=== PATIENT | female | born 1990 | race Hispanic/Latino ===

== ENCOUNTER 2016-08-17 22:27 | Emergency (ER) | payer OTHER ==
--- NOTE | 2016-08-18 00:38 | EDDOCDS ---
Nurse's Notes [facility] Name: Maryann Quiroz Age: 26 yrs Sex: Female : 1990 Arrival Date: 08/17/2016 Time: 22:27 Bed 7 Private MD: BONNIE BAILON Diagnosis: Irregular menstruation, unspecified Presentation: 08/17 22:31 Presenting complaint: states: Has not had a menstrual period since early may. Had several negative test ith two faint positive tests in the past few days. Had some light spotting earlier and now has light bleeding. Risk factors: The patient reports no loss of conciousness prior to arrival. This patient has not had a hysterectomy. This patient has not begun menopause. Adult Sepsis Screening: The patient does not have new or worsening altered mentation. Patient's respiratory rate is less than 22. Systolic blood pressure is greater than 100. Patient has a qSOFA score of 0- Negative Sepsis Screen. Suicide/Homicide risk assessment- the patient denies having any suicidal and/or homicidal ideations and does not present with any other emotional, behavioral or mental health complaints. Status: Patient is not a food service team member or dependent. Transition of care: patient was not received from another setting of care. 22:31 Acuity: BELTRAN Level 3 jo3 22:31 Method Of Arrival: Walkin/Carried/Asstd jo3 Triage Assessment: 22:35 General: Appears in no apparent distress, Behavior is appropriate for age, cooperative. jo3 Pain: Location: low abdomen. Pain: Pain currently is 4 out of 10 on a pain scale. HIV screening NA for this visit Offered previously. Neurological: Level of Consciousness is awake, alert, Oriented to person, place, time. Respiratory: Airway is patent Respiratory effort is even, unlabored. Derm: Skin is pink, warm & dry. 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 Vitamin Oral tab 1 tab once daily - PMHx: none; - PSHx: Breast Reduction; c section x2; - Social history: No barriers to communication noted, The patient speaks fluent Vietnamese, Speaks appropriately for age, Smoking status: Patient states was never smoker of tobacco. - Family history: No immediate family members are acutely ill. - : The pt / caregiver states he / she is not on anticoagulants. Home medication list is obtained from the patient. - Exposure Risk Screening:: None identified. Screenin/14 00:36 Screening information is obtained from the patient. Fall risk: No risks identified. nn1 Assistance ADL's: requires no assistance with activities of daily living. Abuse/DV Screen: The patient / caregiver reports he/she is: not in a situation that causes fear, pain or injury. Nutritional screening: No deficits noted. Advance Directives: Currently, there is no health care proxy. home support is adequate. Assessment: 08/17 22:48 General: Appears in no apparent distress, comfortable, Behavior is appropriate for age, nn1 cooperative. General: Patient reports breast tenderness and morning sickness x 3 months. . Pain: Location: pelvis Pain currently is 4 out of 10 on a pain scale. Quality of pain is described as pressure. Neurological: Level of Consciousness is awake, alert, obeys commands, Oriented to person, place, time. Respiratory: Airway is patent Respiratory effort is even, unlabored, Respiratory pattern is regular, symmetrical. GI: Abdomen is obese, Stools are reported to be loose, Bowel sounds present X 4 quads. Abd is soft and non tender X 4 quads. Reports nausea, vomiting. : Reports vaginal bleeding that is with clots spotty Patient reports small clots today. Has been spotting x 2 days. Patient is sexually active Method of control is patient stopped taking control in April, patient and partner attempting to conceive child at this time. Derm: Skin is normal. 23:56 Reassessment: Patient appears in no apparent distress at this time. nn1 08/18 00:29 General: Family and patient aware of disposition at this time, awaiting discharge nn1 instructions. . 00:36 General: Appears in no apparent distress, comfortable, Behavior is appropriate for age, nn1 cooperative. Pain: Denies pain. Neurological: Level of Consciousness is awake, alert, obeys commands. Respiratory: Airway is patent Respiratory effort is even, unlabored, Respiratory pattern is regular, symmetrical. Derm: Skin is. Vital Signs: 08/17 22:29 BP 139 / 78; Pulse 86; Resp 18; Temp 97.7(O); Pulse Ox 100% on R/A; Weight 89.81 kg dd6 (R); Height 5 ft. 4 in. (162.56 cm) (R); 22:29 Body Mass Index 33.99 (89.81 kg, 162.56 cm) dd6 Vitals: 22:29 Log In Time: August 17, 2016 at 22:27. dd6 ED Course: 22:28 Patient visited by Kartik Plascencia PCA. dd6 22:28 Patient moved to Waiting dd6 22:29 BONNIE BAILON is Private Physician. dd6 22:30 Patient moved to Pre RCE dd6 22:34 Triage Initiated jo3 22:37 Patient visited by Dawna Danielle,ALVARADO. jo3 22:39 Raquel Moore,ALVARADO is Primary Nurse. jmb 22:39 Patient moved to 7 jmb 22:42 Joel Grayson DO is Attending Physician. cs11 22:42 Patient visited by Joel Grayson DO. cs11 22:45 [facility] le 22:59 Patient visited by Annabelle Grayson PCA. ls3 22:59 Wet Prep Sent. ls3 22:59 GC & Chlamydia Amplification Sent. ls3 22:59 Assist provider with pelvic exam:. ls3 23:18 Labs drawn. (by ED staff). Sent per order to lab. kas2 23:19 Hcg, Serum Quantitative Sent. kas2 23:19 Rh Only Sent. kas2 23:25 Patient name changed from Maryann\S\\S\Quiroz\S\ to Maryann\S\Ethel\S\Quiroz. EDMS 23:29 [place] [place] Payment Agreement was scanned into [employer] and attached to record. pm4 23:56 Patient visited by Fred Muniz RN. nn1 08/18 00:29 Patient visited by Fred Muniz RN. nn1 00:30 BONNIE BAILON is Referral Physician. le 00:37 The patient / caregiver is instructed regarding the plan of care and ED course. nn1 00:37 No IV's were initiated during this patient's visit. nn1 Order Results: Lab Order: Hcg, Serum Quantitative; SPEC'M 08/17/16 23:17 Test: HCG, SERUM QUANTITATIVE; Value: < 1.0; Units: MIU/ML; Status: F Test Note: ; GESTATIONAL AGE APPROXIMATE HCG RANGE (MIU/ML) 0.2-1 WEEK 5-50 1-2 WEEKS 50-500 2-3 WEEKS 100-5,000 3-4 WEEKS 500-10,000 4-5 WEEKS 1,000-50,000 5-6 WEEKS 10,000-100,000 6-8 WEEKS 15,000-200,000 2-3 MONTHS 10,000-100,000 NON FEMALES LESS THAN 3.0 Patient samples may contain human heterophilic antibodies that could react with immunoassays to give falsely elevated or depressed results. This assay has been designed to minimize interference from heterophilic antibodies. Elevated hCG levels have also been associated with trophoblastic disease and nontrophoblastic neoplasms. The possibility of having these diseases should be considered before a diagnosis of is made. This test is not intended for use as a surrogate marker for aiding in the diagnosis or monitoring the treatment of cancer patients. Siemens MemberConnection methodology. Lab Order: Rh Only; SPEC'M 08/17/16 23:17 Test: RH; Value: POSITIVE; Status: F Lab Order: Wet Prep; SPEC'M 08/17/16 22:57 Test: WET PREP; Value: WET PREP RESULT; Status: F Test: WET PREP; Value: MODERATE EPITHELIAL CELLS PRESENT; Status: F Test: WET PREP; Value: MODERATE LONG RODS PRESENT; Status: F Outcome: 00:30 Discharge ordered by Provider. le 00:37 Discharge Assessment: Patient awake, alert and oriented x 3. No cognitive and/or nn1 functional deficits noted. Patient verbalized understanding of disposition instructions. patient administered narcotics - no. The following High Risk Discharge criteria are identified: None. Discharged to home ambulatory, with family. Condition: good Condition: improved. No special radiology studies were completed. Property :Personal belongings accompany Pt. 00:37 Patient left the ED. nn1 Signatures: Dispatcher [employer] EDUT Dawna Danielle RN RN Sandra Cao, SENIOR DATA ARCHITECT SENIOR DATA ARCHITECT Kartik Reilly, COUNSELOR MARRIAGE AND FAMILY COUNSELOR MARRIAGE AND FAMILY dd6 Joel Grayson DO DO cs11 Bonifacio Campbell RN RN jmb Nunez, Nikkole, RN RN nn1 Annabelle Grayson, COUNSELOR MARRIAGE AND FAMILY COUNSELOR MARRIAGE AND FAMILY ls3 Marielos Mercedes RN RN kas2 Glenn Howe, Reg Reg pm4 MTDD
--- NOTE | 2016-08-18 00:38 | EDDOCDS ---
Physician Documentation [facility] Name: Maryann Quiroz Age: 26 yrs Sex: Female : 1990 Arrival Date: 08/17/2016 Time: 22:27 Bed 7 Private MD: BONNIE BAILON Disposition: 08/18/16 00:30 Discharged to Home/Self Care. Impression: Irregular menstruation, unspecified. - Condition is Stable. - Discharge Instructions: Abnormal Uterine Bleeding. - Medication Reconciliation, Local Pharmacy Hours form. - Follow up: BONNIE BAILON; When: As needed; Reason: Recheck today's complaints, Continuance of care. - Problem is new. - Symptoms are unchanged. - Notes: You are not . I do not know why you skipped two periods. This can be investigated further by your doctor. Return to the ED for any further concerns Historical: - Allergies: No known drug Allergies; - Home Meds: 1. Vitamin Oral tab 1 tab once daily - PMHx: none; - PSHx: Breast Reduction; c section x2; - Social history: No barriers to communication noted, The patient speaks fluent Slovak, Speaks appropriately for age, Smoking status: Patient states was never smoker of tobacco. - Family history: No immediate family members are acutely ill. - : The pt / caregiver states he / she is not on anticoagulants. Home medication list is obtained from the patient. - Exposure Risk Screening:: None identified. 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 4 in. (162.56 cm) (R); 22:29 Body Mass Index 33.99 (89.81 kg, 162.56 cm) dd6 MDM: 22:44 Hcg, Serum Quantitative Ordered. EDMS 22:46 Rh Only Ordered. EDMS 22:47 Set up pelvic ordered. le 22:48 Wet Prep Ordered. EDMS 22:48 GC & Chlamydia Amplification Ordered. EDMS 23:27 Wet Prep Reviewed. le 23:29 Financial registration complete. pm4 23:29 [facility] Payment Agreement was scanned into [employer] and attached to record. pm4 Signatures: Dispatcher [employer] EDDawna Silveira,RN RN jo3 Sandra Mukherjee, HOME COORDINATOR HOME COORDINATOR Joel Diamond, DO cs11 Fred MunizRN RN nn1 Glenn Howe, Reg Reg pm4 The chart was reviewed and I authenticate all verbal orders and agree with the evaluation and treatment provided.Corrections: (The following items were deleted from the chart) 22:46 22:43 Orthostatic VS ordered. cs11 le 22:50 22:44 COMPLETE BLOOD COUNT+LAB ordered. EDMS EDMS Attachments: 23:29 [place] pm4 MTDD
--- NOTE | 2016-08-20 01:38 | EDDOCDS ---
Nurse's Notes [facility] Name: Maryann Quiroz Age: 26 yrs Sex: Female : 1990 Arrival Date: 08/17/2016 Time: 22:27 Bed 7 Private MD: BONNIE BAILON Diagnosis: Irregular menstruation, unspecified Presentation: 08/17 22:31 Presenting complaint: states: Has not had a menstrual period since early may. Had several negative test ith two faint positive tests in the past few days. Had some light spotting earlier and now has light bleeding. Risk factors: The patient reports no loss of conciousness prior to arrival. This patient has not had a hysterectomy. This patient has not begun menopause. Adult Sepsis Screening: The patient does not have new or worsening altered mentation. Patient's respiratory rate is less than 22. Systolic blood pressure is greater than 100. Patient has a qSOFA score of 0- Negative Sepsis Screen. Suicide/Homicide risk assessment- the patient denies having any suicidal and/or homicidal ideations and does not present with any other emotional, behavioral or mental health complaints. Status: Patient is not a security services manager or dependent. Transition of care: patient was not received from another setting of care. 22:31 Acuity: BELTRAN Level 3 jo3 22:31 Method Of Arrival: Walkin/Carried/Asstd jo3 Triage Assessment: 22:35 General: Appears in no apparent distress, Behavior is appropriate for age, cooperative. jo3 Pain: Location: low abdomen. Pain: Pain currently is 4 out of 10 on a pain scale. HIV screening NA for this visit Offered previously. Neurological: Level of Consciousness is awake, alert, Oriented to person, place, time. Respiratory: Airway is patent Respiratory effort is even, unlabored. Derm: Skin is pink, warm & dry. 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 Vitamin Oral tab 1 tab once daily - PMHx: none; - PSHx: Breast Reduction; c section x2; - Social history: No barriers to communication noted, The patient speaks fluent Canadian, Speaks appropriately for age, Smoking status: Patient states was never smoker of tobacco. - Family history: No immediate family members are acutely ill. - : The pt / caregiver states he / she is not on anticoagulants. Home medication list is obtained from the patient. - Exposure Risk Screening:: None identified. Screenin/14 00:36 Screening information is obtained from the patient. Fall risk: No risks identified. nn1 Assistance ADL's: requires no assistance with activities of daily living. Abuse/DV Screen: The patient / caregiver reports he/she is: not in a situation that causes fear, pain or injury. Nutritional screening: No deficits noted. Advance Directives: Currently, there is no health care proxy. home support is adequate. Assessment: 08/17 22:48 General: Appears in no apparent distress, comfortable, Behavior is appropriate for age, nn1 cooperative. General: Patient reports breast tenderness and morning sickness x 3 months. . Pain: Location: pelvis Pain currently is 4 out of 10 on a pain scale. Quality of pain is described as pressure. Neurological: Level of Consciousness is awake, alert, obeys commands, Oriented to person, place, time. Respiratory: Airway is patent Respiratory effort is even, unlabored, Respiratory pattern is regular, symmetrical. GI: Abdomen is obese, Stools are reported to be loose, Bowel sounds present X 4 quads. Abd is soft and non tender X 4 quads. Reports nausea, vomiting. : Reports vaginal bleeding that is with clots spotty Patient reports small clots today. Has been spotting x 2 days. Patient is sexually active Method of control is patient stopped taking control in April, patient and partner attempting to conceive child at this time. Derm: Skin is normal. 23:56 Reassessment: Patient appears in no apparent distress at this time. nn1 08/18 00:29 General: Family and patient aware of disposition at this time, awaiting discharge nn1 instructions. . 00:36 General: Appears in no apparent distress, comfortable, Behavior is appropriate for age, nn1 cooperative. Pain: Denies pain. Neurological: Level of Consciousness is awake, alert, obeys commands. Respiratory: Airway is patent Respiratory effort is even, unlabored, Respiratory pattern is regular, symmetrical. Derm: Skin is. Vital Signs: 08/17 22:29 BP 139 / 78; Pulse 86; Resp 18; Temp 97.7(O); Pulse Ox 100% on R/A; Weight 89.81 kg dd6 (R); Height 5 ft. 4 in. (162.56 cm) (R); 08/18 00:38 BP 130 / 84; Pulse 91; Resp 18; Temp 98(TE); Pulse Ox 98% on R/A; Pain 0/10; nn1 08/17 22:29 Body Mass Index 33.99 (89.81 kg, 162.56 cm) dd6 Vitals: 08/17 22:29 Log In Time: August 17, 2016 at 22:27. dd6 ED Course: 22:28 Patient visited by Kartik Plascencia PCA. dd6 22:28 Patient moved to Waiting dd6 22:29 BONNIE BAILON is Private Physician. dd6 22:30 Patient moved to Pre RCE dd6 22:34 Triage Initiated jo3 22:37 Patient visited by Dawna Danielle,ALVARADO. jo3 22:39 Raquel Moore,ALVARADO is Primary Nurse. jmb 22:39 Patient moved to 7 jmb 22:42 Joel Grayson DO is Attending Physician. cs11 22:42 Patient visited by Joel Grayson DO. cs11 22:45 Sandra Mukherjee FNP is PHCP. le 22:59 Patient visited by Annabelle Grayson PCA. ls3 22:59 Wet Prep Sent. ls3 22:59 GC & Chlamydia Amplification Sent. ls3 22:59 Assist provider with pelvic exam:. ls3 23:18 Labs drawn. (by ED staff). Sent per order to lab. kas2 23:19 Hcg, Serum Quantitative Sent. kas2 23:19 Rh Only Sent. kas2 23:25 Patient name changed from Maryann\S\\S\Quiroz\S\ to Maryann\S\Ethel\S\Quiroz. EDMS 23:29 [place] [place] Payment Agreement was scanned into [employer] and attached to record. pm4 23:56 Patient visited by Fred Muniz RN. nn1 08/18 00:29 Patient visited by Fred Muniz RN. nn1 00:30 BONNIE BAILON is Referral Physician. le 00:37 The patient / caregiver is instructed regarding the plan of care and ED course. nn1 00:37 No IV's were initiated during this patient's visit. nn1 07:59 T-Sheet-- Draft Copy was scanned into [employer] and attached to record. [facility] Order Results: Lab Order: Hcg, Serum Quantitative; SPEC'M 08/17/16 23:17 Test: HCG, SERUM QUANTITATIVE; Value: < 1.0; Units: MIU/ML; Status: F Test Note: ; GESTATIONAL AGE APPROXIMATE HCG RANGE (MIU/ML) 0.2-1 WEEK 5-50 1-2 WEEKS 50-500 2-3 WEEKS 100-5,000 3-4 WEEKS 500-10,000 4-5 WEEKS 1,000-50,000 5-6 WEEKS 10,000-100,000 6-8 WEEKS 15,000-200,000 2-3 MONTHS 10,000-100,000 NON FEMALES LESS THAN 3.0 Patient samples may contain human heterophilic antibodies that could react with immunoassays to give falsely elevated or depressed results. This assay has been designed to minimize interference from heterophilic antibodies. Elevated hCG levels have also been associated with trophoblastic disease and nontrophoblastic neoplasms. The possibility of having these diseases should be considered before a diagnosis of is made. This test is not intended for use as a surrogate marker for aiding in the diagnosis or monitoring the treatment of cancer patients. Siemens TERMINALFOUR methodology. Lab Order: Rh Only; SPEC'M 08/17/16 23:17 Test: RH; Value: POSITIVE; Status: F Lab Order: GC & Chlamydia Amplification; SPEC'M 08/17/16 22:57 Test: CHLAMYDIA DNA AMPLIFICATION; Value: NEGATIVE; Range: NEGATIVE; Status: F Test: GC DNA AMPLIFICATION; Value: NEGATIVE; Range: NEGATIVE; Status: F Lab Order: Wet Prep; SPEC'M 08/17/16 22:57 Test: WET PREP; Value: WET PREP RESULT; Status: F Test: WET PREP; Value: MODERATE EPITHELIAL CELLS PRESENT; Status: F Test: WET PREP; Value: MODERATE LONG RODS PRESENT; Status: F Outcome: 00:30 Discharge ordered by Provider. le 00:37 Discharge Assessment: Patient awake, alert and oriented x 3. No cognitive and/or nn1 functional deficits noted. Patient verbalized understanding of disposition instructions. patient administered narcotics - no. The following High Risk Discharge criteria are identified: None. Discharged to home ambulatory, with family. Condition: good Condition: improved. No special radiology studies were completed. Property :Personal belongings accompany Pt. 00:37 Patient left the ED. nn1 Signatures: Dispatcher [employer] EDDawna Silveira,RN RN jo3 Sandra Mukherjee, INDUSTRIAL SOCIOLOGIST INDUSTRIAL SOCIOLOGIST Kartik Reilly, SLAG PRODUCTION WORKER SLAG PRODUCTION WORKER dd6 Joel Grayson, DO DO cs11 Bonifacio Campbell RN RN Fred Ashby RN RN nn1 Annabelle Grayson, SLAG PRODUCTION WORKER SLAG PRODUCTION WORKER ls3 Marielos Mercedes RN RN Sulma Marie Paul, Reg Reg pm4 Chart Complete MTDD
--- NOTE | 2016-08-20 01:38 | EDDOCDS ---
Physician Documentation [facility] Name: Maryann Quiroz Age: 26 yrs Sex: Female : 1990 Arrival Date: 08/17/2016 Time: 22:27 Bed 7 Private MD: BONNIE BAILON Disposition: 08/18/16 00:30 Discharged to Home/Self Care. Impression: Irregular menstruation, unspecified. - Condition is Stable. - Discharge Instructions: Abnormal Uterine Bleeding. - Medication Reconciliation, Local Pharmacy Hours form. - Follow up: BONNIE BAILON; When: As needed; Reason: Recheck today's complaints, Continuance of care. - Problem is new. - Symptoms are unchanged. - Notes: You are not . I do not know why you skipped two periods. This can be investigated further by your doctor. Return to the ED for any further concerns Historical: - Allergies: No known drug Allergies; - Home Meds: 1. Vitamin Oral tab 1 tab once daily - PMHx: none; - PSHx: Breast Reduction; c section x2; - Social history: No barriers to communication noted, The patient speaks fluent Trinidadian, Speaks appropriately for age, Smoking status: Patient states was never smoker of tobacco. - Family history: No immediate family members are acutely ill. - : The pt / caregiver states he / she is not on anticoagulants. Home medication list is obtained from the patient. - Exposure Risk Screening:: None identified. 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 4 in. (162.56 cm) (R); 08/18 00:38 BP 130 / 84; Pulse 91; Resp 18; Temp 98(TE); Pulse Ox 98% on R/A; Pain 0/10; nn1 08/17 22:29 Body Mass Index 33.99 (89.81 kg, 162.56 cm) dd6 MDM: 08/17 22:44 Hcg, Serum Quantitative Ordered. EDMS 22:46 Rh Only Ordered. EDMS 22:47 Set up pelvic ordered. le 22:48 Wet Prep Ordered. EDMS 22:48 GC & Chlamydia Amplification Ordered. EDMS 23:27 Wet Prep Reviewed. le 23:29 Financial registration complete. pm4 23:29 [facility] Payment Agreement was scanned into [employer] [facility] and attached to record. pm4 08/18 07:59 T-Sheet-- Draft Copy was scanned into [employer] and attached to record. [facility] Signatures: Dispatcher [employer] EDDawna Silveira,ALVARADO RN jo3 Sandra Mukherjee, NATURAL SCIENCE CURATOR NATURAL SCIENCE CURATOR Joel Diamond, DO cs11 Fred Muniz RN RN nn1 Sulma Regalado se Glenn Howe, Reg Reg pm4 The chart was reviewed and I authenticate all verbal orders and agree with the evaluation and treatment provided.Corrections: (The following items were deleted from the chart) 08/17 22:46 22:43 Orthostatic VS ordered. cs11 le 22:50 22:44 COMPLETE BLOOD COUNT+LAB ordered. EDOR EDMS Attachments: 23:29 [facility] Payment Agreement pm4 08/18 07:59 T-Sheet-- Draft Copy [facility] Chart Complete MTDD
--- NOTE | 2016-08-20 01:38 | EDDOCDS ---
Physician Documentation [facility] Name: Maryann Quiroz Age: 26 yrs Sex: Female : 1990 Arrival Date: 08/17/2016 Time: 22:27 Bed 7 Private MD: BONNIE BAILON Disposition: 08/18/16 00:30 Discharged to Home/Self Care. Impression: Irregular menstruation, unspecified. - Condition is Stable. - Discharge Instructions: Abnormal Uterine Bleeding. - Medication Reconciliation, Local Pharmacy Hours form. - Follow up: BONNIE BAILON; When: As needed; Reason: Recheck today's complaints, Continuance of care. - Problem is new. - Symptoms are unchanged. - Notes: You are not . I do not know why you skipped two periods. This can be investigated further by your doctor. Return to the ED for any further concerns Historical: - Allergies: No known drug Allergies; - Home Meds: 1. Vitamin Oral tab 1 tab once daily - PMHx: none; - PSHx: Breast Reduction; c section x2; - Social history: No barriers to communication noted, The patient speaks fluent Polish, Speaks appropriately for age, Smoking status: Patient states was never smoker of tobacco. - Family history: No immediate family members are acutely ill. - : The pt / caregiver states he / she is not on anticoagulants. Home medication list is obtained from the patient. - Exposure Risk Screening:: None identified. 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 4 in. (162.56 cm) (R); 08/18 00:38 BP 130 / 84; Pulse 91; Resp 18; Temp 98(TE); Pulse Ox 98% on R/A; Pain 0/10; nn1 08/17 22:29 Body Mass Index 33.99 (89.81 kg, 162.56 cm) dd6 MDM: 08/17 22:44 Hcg, Serum Quantitative Ordered. EDMS 22:46 Rh Only Ordered. EDMS 22:47 Set up pelvic ordered. le 22:48 Wet Prep Ordered. EDMS 22:48 GC & Chlamydia Amplification Ordered. EDMS 23:27 Wet Prep Reviewed. le 23:29 Financial registration complete. pm4 23:29 [facility] Payment Agreement was scanned into [employer] and attached to record. pm4 08/18 07:59 T-Sheet-- Draft Copy was scanned into [employer] and attached to record. [facility] Signatures: Dispatcher [employer] EDDawna Silveira,ALVARADO RN jo3 Sandra Mukherjee, HEAD WRESTLING COACH HEAD WRESTLING COACH Joel Diamond, DO cs11 Fred Muniz RN RN nn1 Sulma Regalado se Glenn Howe, Reg Reg pm4 The chart was reviewed and I authenticate all verbal orders and agree with the evaluation and treatment provided.Corrections: (The following items were deleted from the chart) 08/17 22:46 22:43 Orthostatic VS ordered. cs11 le 22:50 22:44 COMPLETE BLOOD COUNT+LAB ordered. EDIA EDMS Attachments: 23:29 [facility] Payment Agreement pm4 08/18 07:59 T-Sheet-- Draft Copy [facility] Chart Complete MTDD
== END 2016-08-18 00:37 | disposition home or self-care (01) ==
LOC: M ED 22:27
DX: N92.6 Irregular menstruation, unspecified (principal); Z79.899 Other long term (current) drug therapy

== ENCOUNTER 2017-05-09 09:30 | Emergency (ER) | payer OTHER ==
[~2017-05-09] VITALS: Ht 162.6 cm; Wt 76.4 kg
[2017-05-09 09:31] VITALS: BP 142/84
[2017-05-09] MEDS ORDERED: NS 1,000 ML IV ONE (11:30)
--- NOTE | 2017-05-09 12:32 | REP ---
Pelvic ultrasound including transabdominal, endovaginal and Doppler ultrasound assessment: Balloon stat request for vaginal bleeding for 45 days. There are no comparisons. The bladder is suboptimally distended. The uterus is anteverted and normal size measuring 7.2 x 3.8 x 5.2 cm. The myometrium is heterogeneous. The endometrium is not thickened measuring 5.7 mm. The ovaries are normal size. The right ovary measures 3.3 x 2.1 x 3.7 cm. The left ovary measures 3.3 x 2.2 x 2.7 cm. There is vascular flow in both ovaries with the Doppler resistive index of the intraparenchymal arteries on the right measuring 0.61, left through 0.52. There is no free fluid in the cul-de-sac. Impression: The myometrium has a heterogeneous echotexture. The endometrium is not thickened. There are no ovarian dominant masses or cysts. No free fluid in the pelvis. There is vascular flow in both ovaries. Signed by Suhail Mead MD 05/09/2017 12:23 P
[2017-05-09 12:42] LABS: BASO % 0.4 % (0.0-1.0); EOS # 0.1 10^3/uL (0.0-0.50); EOS % 0.7 % (0.0-3.0); IMMATURE GRANULOCYTE % 0.3 % (0-0); LYMPH # 1.5 10^3/uL (1.5-6.5); LYMPH % 21.7 % (24.0-44.0); MEAN CORPUSCULAR HEMOGLOBIN 27.3 pg (27.0-33.0); MEAN CORPUSCULAR HGB CONC 33.1 g/dl (32.0-36.5); MEAN CORPUSCULAR VOLUME 82.3 fl (80.0-96.0); MONO # 0.5 10^3/uL (0.0-0.8); MONO % 7.7 % (0.0-5.0); NEUTROPHILS # 4.7 10^3/uL (1.8-7.7); NEUTROPHILS % 69.2 % (36.0-66.0); PLATELET COUNT, AUTOMATED 452 10^3/uL (150-450); RED CELL DISTRIBUTION WIDTH 12.6 % (11.5-14.5); WHITE BLOOD COUNT 6.7 10^3/uL (4.0-10.0)
[2017-05-09 13:14] LABS: ALBUMIN 3.7 GM/DL (3.2-5.2); ALBUMIN/GLOBULIN RATIO 0.82 (1.00-1.93); ALKALINE PHOSPHATASE 117 U/L (45-117); ALT/SGPT 42 U/L (12-78); ANION GAP 3 MEQ/L (8-16); AST/SGOT 22 U/L (15-37); BILIRUBIN,DIRECT < 0.1 MG/DL (0.0-0.2); BILIRUBIN,TOTAL 0.2 MG/DL (0.2-1.0); BLOOD UREA NITROGEN 8 MG/DL (7-18); CALCIUM LEVEL 9.2 MG/DL (8.5-10.1); CARBON DIOXIDE LEVEL 31 MEQ/L (21-32); CHLORIDE LEVEL 103 MEQ/L (98-107); CREATININE FOR GFR 0.72 MG/DL (0.55-1.02); GLOMERULAR FILTRATION RATE > 60.0 (>60); GLUCOSE, FASTING 86 MG/DL (70-105); POTASSIUM SERUM 3.8 MEQ/L (3.5-5.1); SODIUM LEVEL 137 MEQ/L (136-145); TOTAL PROTEIN 8.2 GM/DL (6.4-8.2)
[2017-05-09] MEDS ORDERED: IRON65TA PO (14:04)
== END 2017-05-09 14:09 | disposition home or self-care (01) ==
LOC: M ED 09:30
DX: N80.0 Endometriosis of uterus (principal); G43.909 Migraine, unspecified, not intractable, without status migrainosus; Z79.899 Other long term (current) drug therapy

== ENCOUNTER 2017-08-26 15:44 | Observation (INO) | payer OTHER ==
[2017-08-26] MEDS: methylPREDNISolone INJ 125 MG/2 ML VIAL (J2930) IV (19:59)
[2017-08-26] MEDS: NS 1,000 ML IV (19:59)
[2017-08-26] MEDS: METOCLOPRAMIDE INJ 10MG/2ML VIAL (J2765) IV (19:59)
[2017-08-26 20:00] LABS: BASO % 0.5 % (0.0-1.0); EOS # 0.1 10^3/uL (0.0-0.50); EOS % 0.8 % (0.0-3.0); HEMATOCRIT 26.1 % (36.0-47.0); HEMOGLOBIN 7.5 g/dl (12.0-16.0); IMMATURE GRANULOCYTE % 0.4 % (0-0); LYMPH # 2.1 10^3/uL (1.5-6.5); LYMPH % 27.9 % (24.0-44.0); MEAN CORPUSCULAR HEMOGLOBIN 19.8 pg (27.0-33.0); MEAN CORPUSCULAR HGB CONC 28.7 g/dl (32.0-36.5); MEAN CORPUSCULAR VOLUME 68.9 fl (80.0-96.0); MONO # 0.7 10^3/uL (0.0-0.8); MONO % 9.8 % (0.0-5.0); NEUTROPHILS # 4.4 10^3/uL (1.8-7.7); NEUTROPHILS % 60.6 % (36.0-66.0); PLATELET COUNT, AUTOMATED 398 10^3/uL (150-450); RED BLOOD COUNT 3.79 10^6/uL (4.00-5.40); RED CELL DISTRIBUTION WIDTH 15.4 % (11.5-14.5); WHITE BLOOD COUNT 7.3 10^3/uL (4.0-10.0)
[2017-08-26] MEDS: diphenhydrAMINE INJ 50MG/ML VIAL (J1200) IV (20:00)
[2017-08-26 20:26] LABS: ERYTHROCYTE SEDIMENTATION RATE 68 mm/hr (0-20)
[2017-08-26 20:34] LABS: ANION GAP 6 MEQ/L (8-16); BLOOD UREA NITROGEN 10 MG/DL (7-18); C REACTIVE PROTEIN QUANTITATIV 0.63 MG/DL (0.00-0.30); CALCIUM LEVEL 9.4 MG/DL (8.5-10.1); CARBON DIOXIDE LEVEL 30 MEQ/L (21-32); CHLORIDE LEVEL 103 MEQ/L (98-107); GLOMERULAR FILTRATION RATE > 60.0 (>60); GLUCOSE, FASTING 93 MG/DL (70-100); POTASSIUM SERUM 3.7 MEQ/L (3.5-5.1); SODIUM LEVEL 139 MEQ/L (136-145)
[2017-08-26] MEDS: ACETAMINOPHEN 500 MG TAB PO (23:00)
[2017-08-26] MEDS: diphenhydrAMINE 50 MG CAP PO (23:00)
[2017-08-27 01:14] LABS: IMMEDIATE SPIN CROSSMATCH 1 2
[2017-08-27 06:42] LABS: HEMATOCRIT 33.4 % (36.0-47.0); HEMOGLOBIN 10.1 g/dl (12.0-16.0); MEAN CORPUSCULAR HEMOGLOBIN 22.2 pg (27.0-33.0); MEAN CORPUSCULAR HGB CONC 30.2 g/dl (32.0-36.5); MEAN CORPUSCULAR VOLUME 73.4 fl (80.0-96.0); PLATELET COUNT, AUTOMATED 363 10^3/uL (150-450); RED BLOOD COUNT 4.55 10^6/uL (4.00-5.40); RED CELL DISTRIBUTION WIDTH 18.7 % (11.5-14.5); WHITE BLOOD COUNT 5.9 10^3/uL (4.0-10.0)
== END 2017-08-27 09:50 | disposition home or self-care (01) ==
LOC: M ED 15:44 → M ED INP 22:05 → M OBS 22:45
DX: D62 Acute posthemorrhagic anemia (principal); N92.0 Excessive and frequent menstruation with regular cycle; G43.909 Migraine, unspecified, not intractable, without status migrainosus
CPT/HCPCS: J1200

== ENCOUNTER 2017-11-08 16:39 | Emergency (ER) | payer OTHER ==
[2017-11-08 18:44] LABS: KETONE, URINE AUTO RFX NEGATIVE (NEGATIVE); LEUKOCYTE ESTERASE UR AUTO RFX NEGATIVE (NEGATIVE); MUCUS, URINE RFX MODERATE (NEGATIVE); NITRITE, URINE AUTO RFX NEGATIVE (NEGATIVE); RBC, URINE AUTO RFX 2 /HPF (0-3); SPECIFIC GRAVITY UR AUTO RFX 1.015 (1.002-1.035); SQUAM EPITHELIAL CELL UR AURFX 18 /HPF (0-6); WBC, URINE AUTO RFX 1 /HPF (0-3)
[2017-11-08 20:00] LABS: CONTROL LINE HCG INT CTR LINE PRESENT; HCG, SERUM QUALITATIVE NEGATIVE (NEGATIVE)
== END 2017-11-08 20:20 | disposition home or self-care (01) ==
LOC: M ED 16:39
DX: R10.9 Unspecified abdominal pain (principal); Z32.02 Encounter for pregnancy test, result negative; G43.909 Migraine, unspecified, not intractable, without status migrainosus
CPT/HCPCS: 84703

== ENCOUNTER 2018-05-03 13:16 | Emergency (ER) | payer OTHER ==
[2018-05-03 13:54] LABS: KETONE, URINE AUTO RFX NEGATIVE (NEGATIVE); LEUKOCYTE ESTERASE UR AUTO RFX NEGATIVE (NEGATIVE); MUCUS, URINE RFX SMALL (NEGATIVE); NITRITE, URINE AUTO RFX NEGATIVE (NEGATIVE); RBC, URINE AUTO RFX 1 /HPF (0-3); SPECIFIC GRAVITY UR AUTO RFX 1.025 (1.002-1.035); SQUAM EPITHELIAL CELL UR AURFX 5 /HPF (0-6); WBC, URINE AUTO RFX 0 /HPF (0-3)
[2018-05-03 14:16] LABS: BASO % 0.3 % (0.0-1.0); EOS % 0.3 % (0.0-3.0); HEMATOCRIT 40.5 % (36.0-47.0); HEMOGLOBIN 12.9 g/dl (12.0-15.5); IMMATURE GRANULOCYTE % 0.3 % (0-3.0); LYMPH # 1.6 10^3/uL (1.5-6.5); LYMPH % 24.1 % (24.0-44.0); MEAN CORPUSCULAR HEMOGLOBIN 25.1 pg (27.0-33.0); MEAN CORPUSCULAR HGB CONC 31.9 g/dl (32.0-36.5); MEAN CORPUSCULAR VOLUME 78.8 fl (80.0-96.0); MONO # 0.6 10^3/uL (0.0-0.8); MONO % 8.1 % (0.0-5.0); NEUTROPHILS # 4.6 10^3/uL (1.8-7.7); NEUTROPHILS % 66.9 % (36.0-66.0); PLATELET COUNT, AUTOMATED 417 10^3/uL (150-450); RED BLOOD COUNT 5.14 10^6/uL (4.00-5.40); RED CELL DISTRIBUTION WIDTH 14.7 % (11.5-14.5); WHITE BLOOD COUNT 6.8 10^3/uL (4.0-10.0)
[2018-05-03 14:27] LABS: INR 1.01; PROTHROMBIN TIME 13.4 SECONDS (12.1-14.4)
[2018-05-03 14:31] LABS: CONTROL LINE HCG INT CTR LINE PRESENT; HCG, SERUM QUALITATIVE NEGATIVE (NEGATIVE)
[2018-05-03 14:34] LABS: ANION GAP 7 MEQ/L (8-16); BLOOD UREA NITROGEN 10 MG/DL (7-18); CALCIUM LEVEL 9.2 MG/DL (8.5-10.1); CARBON DIOXIDE LEVEL 28 MEQ/L (21-32); CHLORIDE LEVEL 106 MEQ/L (98-107); CREATININE FOR GFR 0.83 MG/DL (0.55-1.30); GLOMERULAR FILTRATION RATE > 60.0 (>60); GLUCOSE, FASTING 69 MG/DL (70-100); POTASSIUM SERUM 4.2 MEQ/L (3.5-5.1); SODIUM LEVEL 141 MEQ/L (136-145)
== END 2018-05-03 15:48 | disposition home or self-care (01) ==
LOC: M ED 13:16
DX: N63.0 Unspecified lump in unspecified breast (principal); R10.9 Unspecified abdominal pain; N20.0 Calculus of kidney
CPT/HCPCS: 74176

== ENCOUNTER 2018-06-12 16:38 | Emergency (ER) | payer OTHER ==
[2018-06-12 17:29] LABS: HEMATOCRIT 43.8 % (36.0-47.0); HEMOGLOBIN 13.9 g/dl (12.0-15.5); MEAN CORPUSCULAR HEMOGLOBIN 25.6 pg (27.0-33.0); MEAN CORPUSCULAR HGB CONC 31.7 g/dl (32.0-36.5); MEAN CORPUSCULAR VOLUME 80.5 fl (80.0-96.0); PLATELET COUNT, AUTOMATED 407 10^3/uL (150-450); RED BLOOD COUNT 5.44 10^6/uL (4.00-5.40); RED CELL DISTRIBUTION WIDTH 15.4 % (11.5-14.5); WHITE BLOOD COUNT 7.9 10^3/uL (4.0-10.0)
[2018-06-12] MEDS ORDERED: NS 1,000 ML IV (17:45)
[2018-06-12] MEDS: NS 1,000 ML IV (17:50)
[2018-06-12 17:57] LABS: HCG, SERUM QUANTITATIVE < 1.0 MIU/ML
[2018-06-12] MEDS: diphenhydrAMINE INJ 50MG/ML VIAL (J1200) IV (18:09)
[2018-06-12] MEDS: KETOROLAC 30 MG/ML VIAL (J1885) IV (18:09)
[2018-06-12] MEDS: METOCLOPRAMIDE INJ 10MG/2ML VIAL (J2765) IV (18:09)
== END 2018-06-12 19:26 | disposition home or self-care (01) ==
LOC: M ED 16:38
DX: N92.0 Excessive and frequent menstruation with regular cycle (principal); R51 Headache; R42 Dizziness and giddiness
CPT/HCPCS: J1200

== ENCOUNTER 2018-07-28 11:11 | Emergency (ER) | payer OTHER ==
[~2018-07-28] VITALS: Ht 162.6 cm; Wt 87.1 kg
[~2018-07-28 11:11] MED LIST: IRON65TA PO; MICR1TAB18 PO; NAPR-49 PO; bcp
[2018-07-28 11:51] LABS: BASO % 0.4 % (0.0-1.0); EOS % 0.5 % (0.0-3.0); HEMATOCRIT 37.9 % (36.0-47.0); HEMOGLOBIN 12.5 g/dl (12.0-15.5); LYMPH # 1.6 10^3/uL (1.5-6.5); LYMPH % 20.7 % (24.0-44.0); MEAN CORPUSCULAR HEMOGLOBIN 25.7 pg (27.0-33.0); MONO # 0.5 10^3/uL (0.0-0.8); MONO % 6.3 % (0.0-5.0); NEUTROPHILS # 5.4 10^3/uL (1.8-7.7); NEUTROPHILS % 71.7 % (36.0-66.0); PLATELET COUNT, AUTOMATED 436 10^3/uL (150-450); RED BLOOD COUNT 4.86 10^6/uL (4.00-5.40); WHITE BLOOD COUNT 7.5 10^3/uL (4.0-10.0)
[2018-07-28 12:14] LABS: BLOOD UREA NITROGEN 8 MG/DL (7-18); CALCIUM LEVEL 9.1 MG/DL (8.5-10.1); CARBON DIOXIDE LEVEL 22 MEQ/L (21-32); CHLORIDE LEVEL 104 MEQ/L (98-107); CREATININE FOR GFR 0.86 MG/DL (0.55-1.30); GLOMERULAR FILTRATION RATE > 60.0 (>60); GLUCOSE, FASTING 137 MG/DL (70-100); HCG, SERUM QUANTITATIVE 374 MIU/ML; POTASSIUM SERUM 3.9 MEQ/L (3.5-5.1); SODIUM LEVEL 137 MEQ/L (136-145)
--- NOTE | 2018-07-28 12:32 | REP ---
Clinical: Left flank pain. Technique: Real time claire scale ultrasound examination using curved array transducer. Findings: Bilateral kidneys are normal in contour, size, echogenicity, and reniform shape. No hydronephrosis, nephrolithiasis, cystic or renal mass lesion. No perinephric fluid collection. Right kidney measures 9.6 x 4.4 x 4.1 cm. Left kidney measures 10.9 x 4.5 x 5.5 cm. Impression: Normal renal ultrasound. No hydronephrosis. Electronically Signed by Yuri Amaya MD 07/28/2018 12:24 P
--- NOTE | 2018-07-28 12:52 | REP ---
Clinical: Positive test with left adnexal pain. Technique: Transabdominal and transvaginal first trimester obstetrical ultrasound with color Doppler evaluation. Findings: Bladder is under distended and currently measures 2.2 x 2.4 x 2.7 cm. Heterogeneous anteverted uterus measures 8.9 x 5.5 x 6.2 cm. The endometrial complex measures 14.3 mm thickness. No intrauterine identified. No discrete uterine or endometrial abnormality identified. Right ovary is normal in appearance and vascularity without torsion and measures 2.6 x 2.8 x 3.0 cm; RI 0.56. Left ovary is relatively normal in appearance and vascularity without torsion and measures 3.0 x 2.7 x 3.7 cm including 2.3 cm hemorrhagic cyst - likely corpus luteal cyst; RI 0.45. A simple appearing cystic structure is identified in the left rosalie pelvis at the level of the uterine fundus measuring 13 x 14 x 18 mm without obvious internal components or vascularity and is otherwise nonspecific. No pelvic free fluid. Impression: 1. Heterogeneous uterus with thickened endometrial complex but no intrauterine identified. 2. Possible left corpus luteal cyst. 3. 1.8 cm simple cystic left adnexal structure without associated vascularity is nonspecific, and follow-up examination may be warranted to evaluate for resolution or change. 4. Differential diagnosis includes early as well as prior . Ectopic cannot definitively be excluded. Correlation with serial HCG levels recommended. Electronically Signed by Yuri Amaya MD 07/28/2018 12:44 P
[2018-07-28 12:59] VITALS: BP 132/82
== END 2018-07-28 13:03 | disposition home or self-care (01) ==
LOC: M ED 11:11
DX: O99.89 Other specified diseases and conditions complicating pregnancy, childbirth and the puerperium (principal); N83.209 Unspecified ovarian cyst, unspecified side; R10.9 Unspecified abdominal pain

== ENCOUNTER → 2018-07-30 | Outpatient (CLI) | payer OTHER ==
[~2018-07-30] MED LIST changes: -NAPR-49 PO; +NAPR-50 PO
== END ==
LOC: M LAB 12:41
PROVIDERS: ATTEND Physician Assistant Medical
DX: Z36.89 Encounter for other specified antenatal screening (principal)

== ENCOUNTER → 2018-10-08 | Outpatient (CLI) | payer OTHER ==
[2018-10-08 19:07] LABS: BASO % 0.1 % (0.0-1.0); EOS % 0.3 % (0.0-3.0); HEMATOCRIT 40.2 % (36.0-47.0); HEMOGLOBIN 13.7 g/dl (12.0-15.5); LYMPH # 1.5 10^3/uL (1.5-6.5); LYMPH % 14.7 % (24.0-44.0); MEAN CORPUSCULAR HEMOGLOBIN 28.4 pg (27.0-33.0); MEAN CORPUSCULAR HGB CONC 34.1 g/dl (32.0-36.5); MEAN CORPUSCULAR VOLUME 83.4 fl (80.0-96.0); MONO # 0.6 10^3/uL (0.0-0.8); MONO % 5.9 % (0.0-5.0); NEUTROPHILS # 7.8 10^3/uL (1.8-7.7); NEUTROPHILS % 78.7 % (36.0-66.0); PLATELET COUNT, AUTOMATED 339 10^3/uL (150-450); RED BLOOD COUNT 4.82 10^6/uL (4.00-5.40)
[2018-10-08 21:05] LABS: CHLAMYDIA DNA AMPLIFICATION NEGATIVE (NEGATIVE); GC DNA AMPLIFICATION NEGATIVE (NEGATIVE)
[2018-10-09 05:25] LABS: HIV 1&2 SCREEN CENTAUR NEGATIVE (NEGATIVE); RUBELLA IgG QUALITATIVE IMMUNE (IMMUNE)
[2018-10-10 11:28] LABS: HEPATITIS C VIRUS ABY INDEX < 0.0 INDEX (<0.8)
== END ==
LOC: M SMT 13:54
PROVIDERS: ATTEND Specialist
DX: Z34.82 Encounter for supervision of other normal pregnancy, second trimester (principal); Z3A.00 Weeks of gestation of pregnancy not specified

== ENCOUNTER 2019-01-20 14:36 | Inpatient (IN) | payer OTHER ==
[~2019-01-20] VITALS: Ht 162.6 cm; Wt 92.0 kg
[2019-01-20] VITALS (37 sets, daily range): BP systolic 112–166; BP diastolic 59–101
[~2019-01-20 14:36] MED LIST changes: -NAPR-50 PO; +NAPR-837 PO
[2019-01-20] MEDS ORDERED: PRENTAB9 PO (15:19)
[2019-01-20] MEDS ORDERED: NIFEdipine 10 MG CAP PO ONE (16:45)
[2019-01-20 17:48] LABS: AMPHETAMINES URINE REFLEX NEGATIVE (NEGATIVE); BARBITURATES URINE REFLEX NEGATIVE (NEGATIVE); BENZODIAZEPINES URINE REFLEX NEGATIVE (NEGATIVE); CANNABINOIDS URINE REFLEX NEGATIVE (NEGATIVE); COCAINE METABOLITE URINE REFLE NEGATIVE (NEGATIVE); METHADONE URINE REFLEX NEGATIVE (NEGATIVE); OPIATES URINE REFLEX NEGATIVE (NEGATIVE); PHENCYCLIDINE URINE REFLEX NEGATIVE (NEGATIVE)
[2019-01-20 17:49] LABS: TOTAL PROTEIN,RANDOM URINE 50.1 MG/DL (0.0-12.0)
[2019-01-20 17:51] LABS: ALBUMIN 2.4 GM/DL (3.2-5.2); ALT/SGPT 21 U/L (12-78); BILIRUBIN,TOTAL 0.2 MG/DL (0.2-1.0); BLOOD UREA NITROGEN 8 MG/DL (7-18); CALCIUM LEVEL 8.5 MG/DL (8.5-10.1); CARBON DIOXIDE LEVEL 26 MEQ/L (21-32); CHLORIDE LEVEL 108 MEQ/L (98-107); CREATININE FOR GFR 0.64 MG/DL (0.55-1.30); GLOMERULAR FILTRATION RATE > 60.0 (>60); GLUCOSE, FASTING 74 MG/DL (70-100); LDH LACTATE DEHYDROGENASE 194 U/L (84-246); POTASSIUM SERUM 4.1 MEQ/L (3.5-5.1); SODIUM LEVEL 141 MEQ/L (136-145); TOTAL PROTEIN 6.1 GM/DL (6.4-8.2); URIC ACID 6.1 MG/DL (2.6-6.0)
[2019-01-20] MEDS ORDERED: FIORICET TAB PO ONE (19:30)
[2019-01-20 19:51] LABS: HEMATOCRIT 39.2 % (36.0-47.0); HEMOGLOBIN 13.6 g/dl (12.0-15.5); MEAN CORPUSCULAR HEMOGLOBIN 30.6 pg (27.0-33.0); MEAN CORPUSCULAR HGB CONC 34.7 g/dl (32.0-36.5); MEAN CORPUSCULAR VOLUME 88.1 fl (80.0-96.0); PLATELET COUNT, AUTOMATED 282 10^3/uL (150-450); RED BLOOD COUNT 4.45 10^6/uL (4.00-5.40); WHITE BLOOD COUNT 8.8 10^3/uL (4.0-10.0)
[2019-01-20] MEDS: LABETALOL 200 MG TAB PO SCH (20:57)
[2019-01-20] MEDS ORDERED: ACETAMINOPHEN 500 MG TAB PO ONE ×2 (23:00)
--- NOTE | 2019-01-20 23:57 | NUR ---
L&D H&P 28yo at 28+6 weeks EGA. dated by first TM US. Presents today from the office (sent directly to L&D) after she was found to have elevated BP and complaints of HORTA. Denies visual changes, RUQ pain, sob, cp. +FM. Denies VB/LOF/uctx. PN course: 1. History of pre-e x 2, both delivered (32 weeks and 25 weeks). Has not been taking ASA 81mg as instructed. Not taking any antihypertensive. Baseline Pr/Cr 0.05 in first trimester. 2. Two prior sections in [place]. PMH: obesity, migraines SH: LTCS x 2 Meds: PNV All: NKDA OB: G1 (2008), LTCS for severe pre-e ("8 months"/32 weeks), delivered in [place]. G2 (2012), LTCS at 25 weeks for severe pre-e, delivered in [place]. 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 Famhx: mother had HTN / pre-eclampsia. O: Mild range HTN. normal HR, afebrile H: RRR no m/g/r L: CTA b/l no w/c/r/r Abd: soft,nt,nd, no uterine fundal tenderness Ext: no c/c/e Labs: Pr/Cr = 0.3 (remainder of pre-e lab panel wnl; see [employer]) EFM: Cat I/reactive for EGA. No decels. +mod variability [place]: no ctxs A/P: 28yo at 28+6 weeks. Pre-eclampsia. Concern for developing persistent severe features. -Tylenol or Fioricet PRN for HORTA -Start antihypertensive now; Nifedipine 10mg PO given upon initial presentation. Labetalol 200 mg BID ordered. -Close observation -Repeat pre-e labs in AM -Betamethasone if BP's / symptoms are not well controlled. -Mag sulfate for seizure prophylaxis if clinical condition worsens -Consider transfer of care to [place] if BMTZ and/or Mag sulfate is initiated. Blanca Dave DO
[2019-01-21] VITALS (40 sets, daily range): BP systolic 124–179; BP diastolic 68–99
[2019-01-21] MEDS: LABETALOL 200 MG TAB PO SCH (08:52)
--- NOTE | 2019-01-21 10:32 | REP ---
OB ULTRASOUND: Real-time sonographic evaluation of the gravid uterus is performed. There is a single living intrauterine gestation. The estimated gestational age is 29 weeks. EDC 04/08/2019. This is based on first trimester ultrasound performed elsewhere. Today's measurements indicate suboptimal growth. BPD 67 mm = 27 weeks 1 day, 12th percentile. HC 246 mm = 26 weeks 5 days, <5th percentile. AC 221 mm = 26 weeks 4 days, <5th percentile. Femur length 50 mm = 26 weeks 5 days, <5th percentile. HC/AC ratio 1.12 within normal range. Estimated weight 965, less than 3rd percentile. Cervix is closed and measures 3.1 cm in length. heart rate 143 beats per minute. Amniotic fluid appears low, MARY 5.3 below normal range of 9.5 to 22.6. SD ratio 4.0 and RI 0.75, both at upper limits of normal range. Visualized anatomy today includes posterior fossa, stomach, cord insertion, three vessel cord and bladder which were all grossly unremarkable. position is vertex. Placenta is anterior and grade 1 with no previa or abruption. SD ratio in the middle cerebral artery is 2.58 and RI 0.61. Given the estimated weight and measurements above, as well as oligohydramnios, concern is raised for symmetrical IUGR. Electronically Signed by Suhail Grajeda MD 01/21/2019 04:32 P
[2019-01-21] MEDS: BETAMETHASONE SOLUSPAN 6MG/ML INJ 5ML (J0702) IM SCH (15:00)
[2019-01-21] MEDS: LABETALOL 100 MG TAB PO SCH (20:00)
[2019-01-22] VITALS (24 sets, daily range): BP systolic 121–186; BP diastolic 58–101
[2019-01-22] MEDS: LABETALOL 100 MG TAB PO SCH ×2 (08:08→20:25)
[2019-01-22] MEDS: BETAMETHASONE SOLUSPAN 6MG/ML INJ 5ML (J0702) IM SCH (16:10)
--- NOTE | 2019-01-22 16:45 | NUR ---
Progress note S: no complaints. no headaches O: EM=398/85 P=106 AF NAD Abd: NT, gravid FHT: Category one toco: none ext: NT, tr edema A/P 28 yo at 29 1/7 weeks with preeclampsia, IUGR Pt on Labetalol 300 mg po BID BP's are stable and appropriate while on hospital bedrest Pt due for 2nd dose of BMZ today. Continue NST qshift Plan to check week ultrasound for cord dopplers/MARY Can attempt transfer to [facility] at [place] if she worsens and needs delivery <32 weeks Brian Alanis MD
[2019-01-23 04:15] VITALS: BP 129/80
[2019-01-23 06:49] VITALS: BP 124/75
[2019-01-23 07:47] VITALS: BP 152/82
[2019-01-23] MEDS ORDERED: CALCIUM CARBONATE 500 MG CHEW U/D PO SCH (09:00)
[2019-01-23] MEDS: LABETALOL 100 MG TAB PO SCH ×2 (09:22→21:10)
[2019-01-23 09:38] LABS: HEMATOCRIT 38.7 % (36.0-47.0); HEMOGLOBIN 13.5 g/dl (12.0-15.5); MEAN CORPUSCULAR HGB CONC 34.9 g/dl (32.0-36.5); PLATELET COUNT, AUTOMATED 291 10^3/uL (150-450); RED BLOOD COUNT 4.35 10^6/uL (4.00-5.40)
[2019-01-23 10:00] LABS: ALT/SGPT 21 U/L (12-78); BILIRUBIN,TOTAL 0.2 MG/DL (0.2-1.0); CREATININE FOR GFR 0.64 MG/DL (0.55-1.30); GLOMERULAR FILTRATION RATE > 60.0 (>60); LDH LACTATE DEHYDROGENASE 318 U/L (84-246); URIC ACID 5.4 MG/DL (2.6-6.0)
[2019-01-23] MEDS ORDERED: SLF 3 ML SYR IV PRN (10:00)
[2019-01-23 12:17] VITALS: BP 158/94
[2019-01-23] MEDS: SLF 3 ML SYR IV SCH ×2 (14:19→21:11)
[2019-01-23] MEDS ORDERED: CALCIUM CARBONATE 500 MG CHEW U/D PO PRN (15:45)
[2019-01-23 16:07] VITALS: BP 152/94
[2019-01-23 20:07] VITALS: BP 140/76
[2019-01-24] VITALS (21 sets, daily range): BP systolic 141–198; BP diastolic 91–118
[2019-01-24] MEDS: SLF 3 ML SYR IV SCH ×4 (06:18→14:09)
[2019-01-24] MEDS ORDERED: LABETALOL 100 MG TAB PO ONE (06:45)
--- NOTE | 2019-01-24 07:45 | IPNPDOC ---
Text Note Date of Service The patient was seen on 01/24/19. NOTE Denies headache, visual disturbance, chest pain or shortness of breath. BP this am elevated 192/104, morning dose labetalol given early BPP results are pending NST 0400 reassuring for gestation Morning NST pending. Dr Fuentes aware of patient status and elevation BP. VS,Fishbone, I+O VS, Fishbone, I+O Laboratory Tests 01/23/19 09:21 Red Blood Count 4.35, Mean Corpuscular Volume 89.0, Mean Corpuscular Hemoglobin 31.0, Mean Corpuscular Hemoglobin Concent 34.9, Red Cell Distribution Width 13.9, Aspartate Amino Transf (AST/SGOT) 20, Alanine Aminotransferase (ALT/SGPT) 21, Lactate Dehydrogenase 318 H, Total Bilirubin 0.2, Uric Acid 5.4 Vital Signs Date Time Temp Pulse Resp B/P (MAP) Pulse Ox O2 Delivery O2 Flow Rate FiO2 01/24/19 07:00 61 192/104 01/24/19 04:24 98.1 18 01/23/19 16:07 99 I&O- Last 24 Hours up to 6 AM 01/24/19 06:00 Intake Total 200 ml Output Total 400 ml Balance -200 ml Marylu Ramirez CNM Jan 24, 2019 07:45
[2019-01-24] MEDS ORDERED: LABETALOL HCL 100 MG/20 ML VIAL IV STA ×4 (08:08→13:36)
--- NOTE | 2019-01-24 08:26 | REP ---
Obstetric ultrasound for preeclampsia, 04:56 a.m.: There is a single intrauterine gestation in a vertex presentation. heart rate is 143 beats per minute. Cervix measures 4.0 cm length. Gestational age by the first ultrasound is 27 weeks 3 days/SEAN 04/22/2019. Gestational age by LMP is 29 weeks 3 days/SEAN of 04/08/2019. Subjectively the amniotic fluid volume demonstrates oligohydramnios. Amniotic fluid index is 5.7. This is 9.1 - 23.2), oligohydramnios. biophysical profile: Breathing 2.0 Movement 2.0 Tone 2.0 AFV 2.0 Total: 8/ 8 . Umbilical artery Doppler assessment: S/D ratio 2.69 (2.30-3.30) Resistive Index 0.63 (0.59-0.75 Diastolic Velocity 11.8. (>10 cm/sec) The placenta is fundal. There is no placenta previa or abruptio. The placenta demonstrates grade 2 maturity. Electronically Signed by Suhail Maed MD 01/24/2019 08:17 A
[2019-01-24] MEDS ORDERED: LABETALOL 200 MG TAB PO SCH (09:00)
[2019-01-24 09:28] LABS: HEMATOCRIT 36.9 % (36.0-47.0); HEMOGLOBIN 12.7 g/dl (12.0-15.5); MEAN CORPUSCULAR HEMOGLOBIN 30.7 pg (27.0-33.0); MEAN CORPUSCULAR HGB CONC 34.4 g/dl (32.0-36.5); MEAN CORPUSCULAR VOLUME 89.1 fl (80.0-96.0); PLATELET COUNT, AUTOMATED 268 10^3/uL (150-450); RED BLOOD COUNT 4.14 10^6/uL (4.00-5.40)
[2019-01-24 09:34] LABS: ALT/SGPT 29 U/L (12-78); BILIRUBIN,TOTAL 0.2 MG/DL (0.2-1.0); CREATININE FOR GFR 0.59 MG/DL (0.55-1.30); GLOMERULAR FILTRATION RATE > 60.0 (>60); URIC ACID 5.5 MG/DL (2.6-6.0)
[2019-01-24 09:51] LABS: LDH LACTATE DEHYDROGENASE 208 U/L (84-246)
[2019-01-24] MEDS ORDERED: MAGNESIUM *L&D* 4 GM/100 ML BAG (40MG/ML) (J3475) As Ordered ONE (14:20)
[2019-01-24] MEDS ORDERED: MAG Sulf (L&D) 4 GM/100 ML 4 GM in APPROPRIATE DILUENT 1 EA IV ONE (14:30)
[2019-01-24] MEDS ORDERED: hydrALAZINE INJ 20 MG/ML VIAL IV ONE (15:00)
[2019-01-24] MEDS ORDERED: MAG Sulf (OBGYN) 20GM/500ML 20,000 MG in APPROPRIATE DILUENT 1 EA IV SCH (15:00)
[2019-01-24] MEDS ORDERED: hydrALAZINE INJ 20 MG/ML VIAL IV STA (16:18)
--- NOTE | 2019-01-24 22:27 | DSES ---
DATE OF ADMISSION: 01/21/2019 DATE OF DISCHARGE/DATE OF TRANSFER: TRANSFER LOCATION: [facility]. ACCEPTING PHYSICIAN: Dr. Enriquez. CONDITION ON DISCHARGE: Stable. DISCHARGE DIAGNOSES: 1. Preeclampsia with severe features. 2. Intrauterine growth restriction. 3. Oligohydramnios. 4. History of two sections. 5. Intrauterine at 29 weeks and 1 day estimated gestational age. HISTORY AND HOSPITAL COURSE: This patient is a 20-year-old 3, para 0-2-0-2, who presented at 28 weeks, 6 days estimated gestational age by first trimester ultrasound, with complaints of headache and was found to have elevated blood pressure. She was sent to labor and delivery for evaluation. She had a protein creatinine ratio that was remarkable for 0.3, otherwise her other preeclampsia labs were normal. She was admitted for observation to labor and delivery, where she received initially 10 mg of nifedipine and was started on 200 mg of labetalol twice a day. She was also started on a course steroids for lung maturity, which she completed on 01/22/2019. She had a growth ultrasound that demonstrated a fetus in the third percentile with a estimated weight of 965 grams. Amniotic fluid was 5.3 cm. This patient remained in labor and delivery, where she completed her course of steroids and was monitored throughout. She had reassuring testing otherwise and her blood pressures initially were mostly normal with some labile elevated blood pressures. On the morning of the 01/24/2019, pressures were severely elevated at rest. Patient received several doses of intravenous (IV) labetalol and hydralazine throughout the day for blood pressure control and was initiated on magnesium sulfate for neurological protection. Her labs were repeated and were unremarkable. She completed a biophysical profile that was 8/8, still demonstrating amniotic fluid index of 5 cm. A request at this point was made to [facility] with accepting physician Dr. Enriquez for maternal transport. Patient is planning for transfer on magnesium sulfate with orders for IV hydralazine as well as IV labetalol as needed.
== END 2019-01-24 17:35 | disposition short-term general hospital (02) | DRG 566 ==
LOC: M LDO 14:36 → M LDI 22:05 → M LDO 01-21 16:08 → M LDI 01-21 16:09
PROVIDERS: ADMIT Advanced Practice Midwife; ATTEND Specialist
DX: O14.13 Severe pre-eclampsia, third trimester (principal); Z3A.28 28 weeks gestation of pregnancy; O41.03X0 Oligohydramnios, third trimester, not applicable or unspecified; O34.211 Maternal care for low transverse scar from previous cesarean delivery

== ENCOUNTER → 2020-07-16 | Outpatient (CLI) | payer SELFPAY ==
[~2020-07-16] MED LIST changes: +PRENTAB9 PO
== END ==
LOC: M LABSMTC 10:21
PROVIDERS: ATTEND Pediatrics
DX: Z20.828 Contact with and (suspected) exposure to other viral communicable diseases (principal)